=== PATIENT | female | born 1965 | race Caucasian/White ===

== ENCOUNTER → 2016-06-18 | Outpatient (CLI) | payer OTHER ==
[~2016-06-18] MED LIST: ALBUTEROL0.09 MG/A2 IH; ALDACTONE25 M1 PO; AMOXICILLIN500 M2 PO; AUGMENTIN 875875 MG PO; CEPHALEXIN500 M1 PO; CLARITIN REDITA10 MG PO; CLARITIN-D 12 H1 TAB PO; CLARITIN10 MG PO; COREG6.25 MG PO; DOXYCYCLINE MO100 MG PO; FLEXERIL10 MG PO; HYDROCODONE BIT1 T11 PO; LANOXIN0.125 MG PO; MEDROL DOSEPAK4 MG PO; MOTRIN400 MG PO; MULTI VITAMINS1 TAB PO; NASACORT55 MCG/ACT NS; NKHM; PRINIVIL10 MG PO; QVAR 40MCG7.3 G1 INH; ROBITUSSIN AC 110 ML PO; TRAMADOL HCL50 MG PO; XANAX0.5 MG PO; ZITHROMAX Z PA250 MG PO
[2016-06-18 11:01] LABS: BASO % 0.4 % (0.0-1.0); EOS # 0.1 10*3/uL (0.0-0.4); EOS % 1.4 % (1.0-4.0); HEMATOCRIT 34.6 % (37.0-47.0); HEMOGLOBIN 11.9 g/dl (12.0-16.0); LYMPH # 2.7 10*3/uL (1.3-4.4); LYMPH % 33.8 % (27.0-41.0); MEAN CORPUSCULAR HGB 32.3 pg (27.0-31.0); MEAN CORPUSCULAR HGB CONC 34.4 g/dl (33.0-37.0); MEAN PLATELET VOLUME 8.7 fl (9.6-12.3); MONO # 0.6 10*3/uL (0.1-1.0); MONO % 7.6 % (3.0-9.0); NEUT # 4.5 10*3/uL (2.3-7.9); NEUT % 56.5 % (47.0-73.0); PLATELET COUNT AUTOMATED 263 10*3/uL (130-400); RED BLOOD COUNT 3.68 10*6/uL (4.10-5.10); RED CELL DISTRI WIDTH 13.3 % (0-14.5); WHITE BLOOD COUNT 7.9 10*3/uL (4.8-10.8)
[2016-06-18 11:50] LABS: ALKALINE PHOSPHATASE 78 U/L (45-117); BILIRUBIN, TOTAL 0.3 mg/dl (0.2-1.0); BUN 8 mg/dl (7-24); CARBON DIOXIDE 31 mmol/L (21-32); CHLORIDE 102 mmol/L (98-107); CHOLESTEROL 215 mg/dL (<200); EST GLOM FILT AFRICAN AMERICAN > 60 ml/min; GLUCOSE 104 mg/dL (65-99); HDL CHOLESTEROL 47 mg/dl (40-60); LDL CHOLESTEROL 140 mg/dL (9-159); POTASSIUM 3.8 mmol/L (3.5-5.1); SGOT/AST 19 IU/L (3-35); SGPT/ALT 21 U/L (12-78); SODIUM 136 mmol/L (136-145); TOTAL PROTEIN 7.1 gm/dL (6.4-8.2); TRIGLYCERIDES 142 mg/dl (<150); VLDL CHOLESTEROL 28 mg/dL (6-40)
[2016-06-18 11:59] LABS: DIGOXIN 0.51 ng/ml (0.8-2.0)
== END | disposition home or self-care (01) ==
LOC: LAB 10:48
PROVIDERS: Family Medicine
DX: Z00.01 Encounter for general adult medical examination with abnormal findings (principal); I10 Essential (primary) hypertension; I50.1 Left ventricular failure, unspecified; Z72.0 Tobacco use

== ENCOUNTER → 2016-06-19 | Outpatient (CLI) | payer OTHER | END | disposition home or self-care (01) | LOC: CARD 14:37 | DX: Z01.810 Encounter for preprocedural cardiovascular examination (principal) ==

== ENCOUNTER → 2016-11-30 | Day surgery (SDC) | payer OTHER ==
[~2016-11-30] VITALS: Ht 162.5 cm; Wt 59.0 kg
--- NOTE | ~2016-11-30 | O ---
[place], [place] OPERATIVE NOTE NAME: PRIMITIVO ODONNELL [id number] UNIT #: [id number] ROOM: DOCTOR: GISELL MCMAHAN MD BIRTHDATE: [birth year] DOS: 11/30/2016 PROCEDURE: 1. Esophagogastroduodenoscopy with biopsy. 2. Colonoscopy. INDICATION: Dysphagia and colon cancer screening. Informed consent was obtained from the patient after indication of the procedure, the alternatives and potential complications were explained to her. PROCEDURE MEDICATIONS: Sedation was administered by Anesthesiology Department. SCOPE USED: For upper endoscopy: Olympus diagnostic adult upper endoscope GIF-180 insertion was to the descending duodenum. For the colonoscopy, the scope used was Olympus pediatric colonoscope variable stiffness GIF-180, insertion was to the cecum, which was identified by the usual landmarks, appendiceal orifice, ileocecal valve and triangular fold, in addition to transillumination in the right lower quadrant. FINDINGS: After adequate sedation, the patient was placed in left lateral decubitus position. Upper endoscopy was performed first. Scope was introduced under direct visualization through the upper esophageal sphincter into the esophagus. Esophageal mucosa appeared normal. No ulcerations or stricture. Lower esophageal sphincter was identified at 38 cm from the incisors. Normal appearing Z line. Stomach was then intubated. Gastric mucosa inspected. Severe gastritis was seen. No discrete ulcers or active bleeding. A CLOtest was performed from the gastric antrum and body. On retroflexed views of the fundus, no hiatal hernia was seen. Pylorus was intubated easily. The duodenal bulb and descending duodenum were within normal range. The scope was then withdrawn after the stomach was decompressed. We then proceeded with the colonoscopy. Rectal examination showed a diminished sphincter tone and no external hemorrhoids. The scope was introduced into the rectum, then advanced to the cecum with no difficulty. The prep was good. The colon mucosa appeared normal. No evidence of polyps, diverticula or ulcerations. Retroflexed views in the rectum were unremarkable. The scope was then withdrawn after the rectum was decompressed. The patient tolerated the procedures well. IMPRESSION: 1. Gastritis and gastric erosions, CLOtest performed. 2. Normal esophageal mucosa, random biopsies obtained. 3. Normal colon mucosa, with no polyps seen. PLAN: We will review the histopathology and DARCY test results and treat the patient accordingly. Repeat screening colonoscopy advised in 10 years. Office followup will be scheduled in 2-3 weeks. [place], [place] OPERATIVE NOTE NAME: PRIMITIVO ODONNELL UNIT #: [id number] ROOM: DOCTOR: GISELL MCMAHAN MD BIRTHDATE: [birth year] GISELL MCMAHAN MD CM:OPRECORD:OPERATIVE NOTE 9 6 MARJORIE MCMAHAN MD 11/30/1647 interface
[2016-11-30 07:25] VITALS: BP 105/72
[2016-11-30 08:00] VITALS: BP 96/55
[2016-11-30 08:15] VITALS: BP 121/76
[2016-11-30 08:30] VITALS: BP 118/76
== END | disposition home or self-care (01) ==
LOC: SDC 11-28 14:00
DX: Z12.11 Encounter for screening for malignant neoplasm of colon (principal); K29.70 Gastritis, unspecified, without bleeding; I10 Essential (primary) hypertension; Z98.890 Other specified postprocedural states; F17.210 Nicotine dependence, cigarettes, uncomplicated

== ENCOUNTER → 2017-04-25 | Outpatient (CLI) | payer OTHER | END | disposition home or self-care (01) | LOC: CT 13:26 | DX: R90.82 White matter disease, unspecified (principal) ==

== ENCOUNTER → 2017-05-01 | Outpatient (CLI) | payer OTHER ==
[2017-05-01 10:41] LABS: ALKALINE PHOSPHATASE 106 U/L (45-117); BUN 9 mg/dl (7-24); CHLORIDE 96 mmol/L (98-107); CHOLESTEROL 214 mg/dL (<200); CREATININE 0.74 mg/dL (0.55-1.02); HDL CHOLESTEROL 39 mg/dl (40-60); LDL CHOLESTEROL 138 mg/dL (9-159); POTASSIUM 4.2 mmol/L (3.5-5.1); SGOT/AST 18 IU/L (3-35); SGPT/ALT 23 U/L (12-78); SODIUM 132 mmol/L (136-145); TOTAL PROTEIN 8.1 gm/dL (6.4-8.2); TRIGLYCERIDES 186 mg/dl (<150); VLDL CHOLESTEROL 37 mg/dL (6-40)
[2017-05-01 10:48] LABS: HEMATOCRIT 36.7 % (37.0-47.0); MEAN CELL VOLUME 91.3 fl (81.0-99.0); MEAN CORPUSCULAR HGB 32.3 pg (27.0-31.0); MEAN CORPUSCULAR HGB CONC 35.4 g/dl (33.0-37.0); RED BLOOD COUNT 4.02 10*6/uL (4.10-5.10); RED CELL DISTRI WIDTH 12.7 % (0-14.5); WHITE BLOOD COUNT 7.7 10*3/uL (4.8-10.8)
[2017-05-01 10:55] LABS: DIGOXIN 0.46 ng/ml (0.8-2.0)
== END | disposition home or self-care (01) ==
LOC: LAB 09:53
PROVIDERS: Registered Nurse Flight
DX: I11.0 Hypertensive heart disease with heart failure (principal); I50.1 Left ventricular failure, unspecified; E55.9 Vitamin D deficiency, unspecified

== ENCOUNTER 2017-06-18 08:55 | Emergency (ER) | payer OTHER ==
[~2017-06-18] VITALS: Ht 162.5 cm; Wt 62.6 kg
[2017-06-18 09:13] LABS: BASO # 0.1 10*3/uL (0.0-0.1); BASO % 0.5 % (0.0-1.0); EOS # 0.1 10*3/uL (0.0-0.4); EOS % 0.9 % (1.0-4.0); HEMATOCRIT 37.1 % (37.0-47.0); HEMOGLOBIN 12.7 g/dl (12.0-16.0); LYMPH # 2.6 10*3/uL (1.3-4.4); LYMPH % 27.7 % (27.0-41.0); MEAN CELL VOLUME 91.6 fl (81.0-99.0); MEAN CORPUSCULAR HGB 31.4 pg (27.0-31.0); MEAN CORPUSCULAR HGB CONC 34.2 g/dl (33.0-37.0); MEAN PLATELET VOLUME 8.6 fl (9.6-12.3); MONO # 0.8 10*3/uL (0.1-1.0); MONO % 8.2 % (3.0-9.0); NEUT # 5.9 10*3/uL (2.3-7.9); NEUT % 62.4 % (47.0-73.0); PLATELET COUNT AUTOMATED 320 10*3/uL (130-400); RED BLOOD COUNT 4.05 10*6/uL (4.10-5.10); RED CELL DISTRI WIDTH 12.8 % (0-14.5); WHITE BLOOD COUNT 9.4 10*3/uL (4.8-10.8)
[2017-06-18 09:21] LABS: ACT PARTIAL THROMBO TIME 24.9 SECONDS (20.8-31.5); INTERNATIONAL NORM RATIO 0.9 (2.0-3.5)
[2017-06-18 09:29] LABS: ALBUMIN 3.9 gm/dl (3.1-4.5); ALKALINE PHOSPHATASE 103 U/L (45-117); BUN 8 mg/dl (7-24); CHLORIDE 102 mmol/L (98-107); CREATININE 0.81 mg/dL (0.55-1.02); SGOT/AST 15 IU/L (3-35); SGPT/ALT 20 U/L (12-78); SODIUM 136 mmol/L (136-145); TOTAL PROTEIN 7.7 gm/dL (6.4-8.2)
[2017-06-18 09:32] LABS: BILIRUBIN NEGATIVE (NEGATIVE); BLOOD NEGATIVE (NEGATIVE); CLARITY CLEAR (CLEAR); COLOR YELLOW (YELLOW); GLUCOSE NEGATIVE (NEGATIVE); KETONE NEGATIVE (NEGATIVE); LEUKO ESTERASE NEGATIVE (NEGATIVE); NITRITE NEGATIVE (NEGATIVE); SPECIFIC GRAVITY <= 1.005 (1.005-1.030); UROBILINOGEN 0.2 E.U./dl (0.2-1.0)
[2017-06-18 09:34] LABS: TROPONIN I < 0.015 ng/ml (<0.045)
[2017-06-18 09:58] LABS: RBC 0-2 rbc/hpf (0-2)
[2017-06-18] MEDS ORDERED: CLINDAMYCIN HC300 MG PO (10:24)
== END 2017-06-18 10:39 | disposition home or self-care (01) ==
LOC: ED 08:55
PROVIDERS: Emergency Medicine
DX: R07.9 Chest pain, unspecified (principal); R59.0 Localized enlarged lymph nodes; F17.200 Nicotine dependence, unspecified, uncomplicated; Z79.899 Other long term (current) drug therapy

== ENCOUNTER → 2017-11-28 | Outpatient (CLI) | payer OTHER ==
[~2017-11-28] MED LIST changes: +CLINDAMYCIN HC300 MG PO
== END | disposition home or self-care (01) ==
LOC: RAD 12:33
DX: M48.07 Spinal stenosis, lumbosacral region (principal); M48.04 Spinal stenosis, thoracic region

== ENCOUNTER 2018-06-26 09:46 | Emergency (ER) | payer OTHER ==
[~2018-06-26] VITALS: Ht 162.5 cm; Wt 59.9 kg
--- NOTE | ~2018-06-26 | EKG ---
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
[2018-06-26 10:11] LABS: BASO % 0.5 % (0.0-1.0); EOS # 0.1 10*3/uL (0.0-0.4); EOS % 1.2 % (1.0-4.0); HEMATOCRIT 36.9 % (37.0-47.0); HEMOGLOBIN 12.8 g/dl (12.0-16.0); LYMPH # 2.8 10*3/uL (1.3-4.4); LYMPH % 36.8 % (27.0-41.0); MEAN CELL VOLUME 93.4 fl (81.0-99.0); MEAN CORPUSCULAR HGB 32.4 pg (27.0-31.0); MEAN CORPUSCULAR HGB CONC 34.7 g/dl (33.0-37.0); MEAN PLATELET VOLUME 9.5 fl (9.6-12.3); MONO # 0.7 10*3/uL (0.1-1.0); MONO % 9.2 % (3.0-9.0); PLATELET COUNT AUTOMATED 300 10*3/uL (130-400); RED BLOOD COUNT 3.95 10*6/uL (4.10-5.10); RED CELL DISTRI WIDTH 13.2 % (0-14.5); WHITE BLOOD COUNT 7.6 10*3/uL (4.8-10.8)
[2018-06-26 10:22] LABS: ACT PARTIAL THROMBO TIME 24.3 SECONDS (20.8-31.5); INTERNATIONAL NORM RATIO 0.9 (2.0-3.5)
[2018-06-26 10:27] LABS: ALBUMIN 3.5 gm/dl (3.1-4.5); ALKALINE PHOSPHATASE 93 U/L (45-117); BUN 10 mg/dl (7-24); CHLORIDE 102 mmol/L (98-107); CREATININE 0.89 mg/dL (0.55-1.02); POTASSIUM 4.5 mmol/L (3.5-5.1); SGOT/AST 24 IU/L (3-35); SGPT/ALT 18 U/L (12-78); SODIUM 136 mmol/L (136-145); TOTAL PROTEIN 7.8 gm/dL (6.4-8.2)
[2018-06-26 10:35] LABS: TROPONIN I < 0.015 ng/ml (<0.045)
== END 2018-06-26 11:06 | disposition home or self-care (01) ==
LOC: ED 09:46
PROVIDERS: Emergency Medicine
DX: H81.10 Benign paroxysmal vertigo, unspecified ear (principal); I10 Essential (primary) hypertension; F17.200 Nicotine dependence, unspecified, uncomplicated; Z79.899 Other long term (current) drug therapy; Z98.51 Tubal ligation status

== ENCOUNTER 2018-11-13 19:31 | Inpatient (IN) | payer OTHER ==
[~2018-11-13] VITALS: Ht 162.5 cm; Wt 56.9 kg
[2018-11-13 19:35] VITALS: BP 168/103
--- NOTE | 2018-11-13 19:40 | NUR ---
RESIDENT IS AT THE BEDSIDE.
[2018-11-13 19:53] LABS: BASO # 0.1 10*3/uL (0.0-0.1); BASO % 0.6 % (0.0-1.0); EOS # 0.1 10*3/uL (0.0-0.4); EOS % 0.8 % (1.0-4.0); HEMATOCRIT 40.9 % (37.0-47.0); HEMOGLOBIN 13.9 g/dl (12.0-16.0); LYMPH # 3.7 10*3/uL (1.3-4.4); LYMPH % 35.4 % (27.0-41.0); MEAN CELL VOLUME 92.7 fl (81.0-99.0); MEAN CORPUSCULAR HGB 31.5 pg (27.0-31.0); MEAN PLATELET VOLUME 9.4 fl (9.6-12.3); MONO # 0.8 10*3/uL (0.1-1.0); MONO % 8.1 % (3.0-9.0); NEUT # 5.7 10*3/uL (2.3-7.9); NEUT % 54.8 % (47.0-73.0); PLATELET COUNT AUTOMATED 276 10*3/uL (130-400); RED BLOOD COUNT 4.41 10*6/uL (4.10-5.10); RED CELL DISTRI WIDTH 12.9 % (0-14.5); WHITE BLOOD COUNT 10.3 10*3/uL (4.8-10.8)
[2018-11-13 19:54] VITALS: BP 139/91
[2018-11-13 20:03] LABS: ACT PARTIAL THROMBO TIME 25.8 SECONDS (20.0-32.1); INTERNATIONAL NORM RATIO 0.9 (2.0-3.5)
[2018-11-13 20:10] LABS: ALBUMIN 4.2 gm/dl (3.1-4.5); ALKALINE PHOSPHATASE 109 U/L (45-117); BUN 10 mg/dl (7-24); CHLORIDE 102 mmol/L (98-107); POTASSIUM 3.5 mmol/L (3.5-5.1); SGOT/AST 15 IU/L (3-35); SGPT/ALT 18 U/L (12-78); SODIUM 134 mmol/L (136-145); TOTAL PROTEIN 8.4 gm/dL (6.4-8.2)
[2018-11-13 20:11] LABS: TROPONIN I 0.021 ng/ml (<0.045)
[2018-11-13 20:32] VITALS: BP 140/88
--- NOTE | 2018-11-13 20:32 | NUR ---
DR SHEA HAS BEEN IN TO UPDATE ON RESULTS AND PLAN FOR ADMISSION. REMAINS AT BASELINE. DENIES ANY NEEDS OTHER THAN STILL FEELING A BIT ANXIOUS. PLAN IS TO GIVE ANOTHER DOSE OF XANAX PER DR SHEA. CALL LIGHT WITHIN REACH. WILL CONTINUE TO MONITOR.
--- NOTE | 2018-11-13 20:44 | NUR ---
AWAITING BED ASSIGNMENT.
--- NOTE | 2018-11-13 21:08 | NUR ---
SPOKE WITH KLEVER TO ADVISE OF ETA TO ROOM.
[2018-11-13 21:15] VITALS: BP 146/89
[2018-11-13] MEDS ORDERED: ASPIRIN ADULT L81 M2 PO (21:36)
--- NOTE | 2018-11-13 22:00 | NUR ---
SPOKE WITH DR CORONA REGARDING PTS DIET. STATES PT CAN HAVE SOMETHING TO EAT AT THIS TIME BUT SHOULD BE NPO AFTER MIDNIGHT.
--- NOTE | 2018-11-13 22:07 | NUR ---
A 53, admitted to , under the services of SAMUEL Mauro DO with a diagnosis of CHEST PAIN W/ MODERATE RISK FOR CARDIAC ETIOLOGY. Chief complaint is CHEST PAIN. Patient arrived via bed from ER. Monitor applied. Initial assessment completed. Vital signs taken and recorded. SAMUEL MAURO DO notified of admission to the unit. Orders received. See assessment for past medical history, medications and allergies. Patient and/or family oriented to unit. [address] visitation policy reviewed. Clothing/patient valuable form completed. NO WOUNDS. SKIN WDI. STELLA MCCALL
--- NOTE | 2018-11-13 22:09 | NUR ---
DR. CORONA AWARE THAT PATIENTS HOME MEDICATIONS WERE REVIEWED WITH THE PATIENT AND ARE UP TO DATE.
--- NOTE | 2018-11-13 23:25 | NUR ---
DR. CORONA NOTIFIED OF CRITICAL TROPONIN 0.444.
--- NOTE | 2018-11-13 23:28 | NUR ---
SPOKE WITH DR ELLIOTT. RECOMENDED CALLING IN THE CONSULT TO DR. OWENS STAT FOLLOWING ELEVATED TROPONIN RESULT. 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 SPOKE WITH HIM REGARDING PTS CONDITION. STATES FOR ME TO CALL DR OWENS AT 0600. FOR NOW, ONE TIME DOSE OF LOVENOX 1MG/KG TO BE GIVEN SUBCUTANEOUSLY PER DR. ADAME TELEPHONE ORDER.
[2018-11-14] VITALS: BP 112/61
--- NOTE | 2018-11-14 03:12 | NUR ---
DR ELLIOTT NOTIFIED OF CRITICAL TROPONIN OF 0.599.
[2018-11-14 05:58] LABS: ALBUMIN 3.4 gm/dl (3.1-4.5); ALKALINE PHOSPHATASE 90 U/L (45-117); BUN 11 mg/dl (7-24); CHLORIDE 107 mmol/L (98-107); CHOLESTEROL 212 mg/dL (<200); CREATININE 0.65 mg/dL (0.55-1.02); HDL CHOLESTEROL 30 mg/dl (40-60); LDL CHOLESTEROL 139 mg/dL (9-159); PHOSPHOROUS 3.7 mg/dL (2.5-4.9); POTASSIUM 3.6 mmol/L (3.5-5.1); SGOT/AST 15 IU/L (3-35); SGPT/ALT 16 U/L (12-78); SODIUM 139 mmol/L (136-145); TOTAL PROTEIN 6.9 gm/dL (6.4-8.2); TRIGLYCERIDES 214 mg/dl (<150); VLDL CHOLESTEROL 43 mg/dL (6-40)
[2018-11-14 05:59] LABS: FREE T4 0.88 ng/dl (0.76-1.46)
--- NOTE | 2018-11-14 06:03 | NUR ---
SPOKE WITH ANSWERING SERVICE REGARIDN NEW PT CONSULT FOR DR MIMS. AWAITING CALL BACK.
--- NOTE | 2018-11-14 06:09 | NUR ---
DR MIMS AWARE OF NEW PT CONSULT.
[2018-11-14 06:12] LABS: TROPONIN I 0.506 ng/ml (<0.045)
--- NOTE | 2018-11-14 06:14 | NUR ---
DR ELLIOTT NOTIFIED OF CRITICAL TROPONIN 0.506.
[2018-11-14 06:18] LABS: BASO % 0.4 % (0.0-1.0); EOS # 0.1 10*3/uL (0.0-0.4); EOS % 1.6 % (1.0-4.0); HEMATOCRIT 36.3 % (37.0-47.0); HEMOGLOBIN 12.5 g/dl (12.0-16.0); LYMPH # 3.4 10*3/uL (1.3-4.4); LYMPH % 44.1 % (27.0-41.0); MEAN CELL VOLUME 91.9 fl (81.0-99.0); MEAN CORPUSCULAR HGB 31.6 pg (27.0-31.0); MEAN CORPUSCULAR HGB CONC 34.4 g/dl (33.0-37.0); MEAN PLATELET VOLUME 9.6 fl (9.6-12.3); MONO # 0.7 10*3/uL (0.1-1.0); MONO % 9.4 % (3.0-9.0); NEUT # 3.4 10*3/uL (2.3-7.9); NEUT % 44.2 % (47.0-73.0); PLATELET COUNT AUTOMATED 251 10*3/uL (130-400); RED BLOOD COUNT 3.95 10*6/uL (4.10-5.10); RED CELL DISTRI WIDTH 12.8 % (0-14.5); WHITE BLOOD COUNT 7.6 10*3/uL (4.8-10.8)
[2018-11-14 07:57] LABS: VITAMIN D, 25-HYDROXY 31.6 ng/mL (30-100)
[2018-11-14 08:00] VITALS: BP 118/70
--- NOTE | 2018-11-14 09:00 | NUR ---
Interventional Cardiologist in to talk to patient. Patient states lives at home with . There are few steps in the home. Physician: sharri acosta Pharmacy: [facility] health services: none Patient's level of ADLs: INDEPENDENT Patient has working utilities: all working DME: none Follow-up physician's appointment after d/c: will be made by hospitalist nurse director upon discharge Does patient want to access PORTAL?: no Discharge plan discussed with patient she lives at home is independent in adls and ambulation, drives, she states she will be returning home when able and denies any home needs. PUJA MARCOS
--- NOTE | 2018-11-14 09:20 | NUR ---
INFORMED SIGNED CONSENT OBTAINED FOR LEXISCAN STRESS TEST WITH DR OWENS. RESTING EKG LBBB HR 72 BP 124/62. PULSE OX 1005 LUNGS CLEAR, SLIGHTLY DIMINISHED IN THE BASES. PT COMPLETED A ONE MINUTE LEXISCAN PROTOCOL WITH PT RECEIVING LEXISCAN 0.4MG IV OVER 10 SECONDS. NO ARRHYTHMIAS NOTED. NONDIAGNOSTIC ST CHANGES SEEN. PT C/O CHEST DISCOMFORT ACROSS CHEST, SOB AND STOMACH CRAMPING WITH INJECTION. LAST RECOVERY HR OF 102 BP 104/68. PT IN STABLE CONDITION, AWIATING NUCLEAR IMAGES.
--- NOTE | 2018-11-14 09:24 | NUR ---
NURSE NOTIFIED THAT REGARDLESS OF STRESS TEST RESULSTS, PT IS SET UP FOR A HEART CATH AT [facility] WITH DR OWENS ON SATURDAY. DR OWENS CALLED AND SPOKE WITH HIS STAFF TO SET IT UP.
--- NOTE | 2018-11-14 10:40 | NUR ---
PER PATIENT CAN D/C HOME, BUT SHE WILL NEED SET-UP FOR HEART CATH AT [facility] ON Saturday11/17/18 PRIOR TO [place]
--- NOTE | 2018-11-14 11:26 | NUR ---
PER FUENTES TADEO'S OFFICE PATIENT HAS BEEN SET-UP FOR A HEART CATH ON 11/17/18 AT 0930, PT WILL NEED TO ARRIVE AT 0730 TO [facility], PT TO BE NPO AFTER MINDNIGHT ON 11/17, CONTINUE TAKING ASA AND PLAVIX. PT AWARE OF INSTRUCTIONS
[2018-11-14 12:00] VITALS: BP 105/69
[2018-11-14] MEDS ORDERED: CLOPIDOGREL75 MG PO (14:04)
[2018-11-14] MEDS ORDERED: LIPITOR40 MG PO (14:04)
--- NOTE | 2018-11-14 14:23 | NUR ---
Discharge instructions reviewed with patient/family. Patient receptive and verbalizes understanding. Follow-up care arranged. Written instructions given to patient/family. AISHWARYA VALDIVIA
== END 2018-11-14 14:40 | disposition home or self-care (01) | DRG 198 ==
LOC: ED 19:31 → EDHOLD 20:23 → 4E 20:23
PROVIDERS: Emergency Medicine Emergency Medical Services; Internal Medicine; ADMIT Internal Medicine
PROC: 4A02XM4 Measurement of Cardiac Total Activity, External Approach (ICD-10-PCS; principal; 2018-11-14)
PROC: 3E073KZ Introduction of Other Diagnostic Substance into Coronary Artery, Percutaneous Approach (ICD-10-PCS; 2018-11-14)
DX: I25.118 Atherosclerotic heart disease of native coronary artery with other forms of angina pectoris (principal); E87.1 Hypo-osmolality and hyponatremia; I50.22 Chronic systolic (congestive) heart failure; I42.6 Alcoholic cardiomyopathy; F17.210 Nicotine dependence, cigarettes, uncomplicated; I11.0 Hypertensive heart disease with heart failure; E78.5 Hyperlipidemia, unspecified; F41.9 Anxiety disorder, unspecified; Z87.440 Personal history of urinary (tract) infections; Z98.51 Tubal ligation status; Z82.49 Family history of ischemic heart disease and other diseases of the circulatory system; Z80.0 Family history of malignant neoplasm of digestive organs; Z79.82 Long term (current) use of aspirin; Z79.899 Other long term (current) drug therapy

== ENCOUNTER → 2018-12-09 | Outpatient (CLI) | payer OTHER ==
[~2018-12-09] MED LIST changes: +ASPIRIN ADULT L81 M2 PO; +CLOPIDOGREL75 MG PO; +LIPITOR40 MG PO
[2018-12-09 12:00] LABS: BASO # 0.1 10*3/uL (0.0-0.1); BASO % 0.6 % (0.0-1.0); EOS # 0.2 10*3/uL (0.0-0.4); EOS % 2.3 % (1.0-4.0); HEMATOCRIT 33.6 % (37.0-47.0); HEMOGLOBIN 11.3 g/dl (12.0-16.0); LYMPH # 2.9 10*3/uL (1.3-4.4); LYMPH % 34.8 % (27.0-41.0); MEAN CELL VOLUME 93.1 fl (81.0-99.0); MEAN CORPUSCULAR HGB 31.3 pg (27.0-31.0); MEAN CORPUSCULAR HGB CONC 33.6 g/dl (33.0-37.0); MEAN PLATELET VOLUME 9.4 fl (9.6-12.3); MONO # 0.6 10*3/uL (0.1-1.0); MONO % 7.6 % (3.0-9.0); NEUT # 4.5 10*3/uL (2.3-7.9); NEUT % 54.5 % (47.0-73.0); PLATELET COUNT AUTOMATED 342 10*3/uL (130-400); RED BLOOD COUNT 3.61 10*6/uL (4.10-5.10); RED CELL DISTRI WIDTH 13.4 % (0-14.5); WHITE BLOOD COUNT 8.3 10*3/uL (4.8-10.8)
[2018-12-09 12:18] LABS: ALBUMIN 3.8 gm/dl (3.1-4.5); ALKALINE PHOSPHATASE 110 U/L (45-117); BUN 7 mg/dl (7-24); CHLORIDE 104 mmol/L (98-107); CHOLESTEROL 114 mg/dL (<200); CREATININE 0.79 mg/dL (0.55-1.02); SGOT/AST 16 IU/L (3-35); SGPT/ALT 27 U/L (12-78); SODIUM 136 mmol/L (136-145); TOTAL PROTEIN 7.8 gm/dL (6.4-8.2); TRIGLYCERIDES 115 mg/dl (<150); VLDL CHOLESTEROL 23 mg/dL (6-40)
[2018-12-09 12:19] LABS: HDL CHOLESTEROL 32 mg/dl (40-60); LDL CHOLESTEROL 59 mg/dL (9-159)
== END | disposition home or self-care (01) ==
LOC: LAB 11:35
PROVIDERS: Registered Nurse Flight
DX: E78.00 Pure hypercholesterolemia, unspecified (principal); D72.829 Elevated white blood cell count, unspecified

== ENCOUNTER → 2019-01-30 | Outpatient (CLI) | payer OTHER | END | disposition home or self-care (01) | LOC: RAD 10:14 | DX: R06.09 Other forms of dyspnea (principal); R06.02 Shortness of breath ==

== ENCOUNTER → 2019-03-25 | Outpatient (CLI) | payer OTHER | END | disposition home or self-care (01) | LOC: CARD 10:10 | DX: I50.1 Left ventricular failure, unspecified (principal) ==

== ENCOUNTER 2019-04-03 07:47 | Emergency (ER) | payer OTHER ==
[~2019-04-03] VITALS: Ht 162.5 cm; Wt 56.7 kg
== END 2019-04-03 09:47 | disposition home or self-care (01) ==
LOC: ED 07:47
DX: S60.222A Contusion of left hand, initial encounter (principal); W23.0XXA Caught, crushed, jammed, or pinched between moving objects, initial encounter; Y92.512 Supermarket, store or market as the place of occurrence of the external cause

== ENCOUNTER → 2019-11-17 | Outpatient (CLI) | payer OTHER ==
[2019-11-17 11:47] LABS: ALBUMIN 4.1 gm/dl (3.1-4.5); BUN 6 mg/dl (7-24); CHLORIDE 107 mmol/L (98-107); CHOLESTEROL 119 mg/dL (<200); CREATININE 0.71 mg/dL (0.55-1.02); HDL CHOLESTEROL 40 mg/dl (40-60); LDL CHOLESTEROL 60 mg/dL (9-159); POTASSIUM 4.4 mmol/L (3.5-5.1); SGOT/AST 20 IU/L (3-35); SGPT/ALT 32 U/L (12-78); SODIUM 138 mmol/L (136-145); TOTAL PROTEIN 7.7 gm/dL (6.4-8.2); TRIGLYCERIDES 93 mg/dl (<150); VLDL CHOLESTEROL 19 mg/dL (6-40)
[2019-11-17 11:48] LABS: ALKALINE PHOSPHATASE 98 U/L (45-117)
== END | disposition home or self-care (01) ==
LOC: LAB 10:52
PROVIDERS: ATTEND Registered Nurse Flight
DX: E78.00 Pure hypercholesterolemia, unspecified (principal)

== ENCOUNTER → 2020-01-06 | Outpatient (CLI) | payer OTHER | END | disposition home or self-care (01) | LOC: US 14:49 | PROVIDERS: ATTEND Internal Medicine | DX: I65.23 Occlusion and stenosis of bilateral carotid arteries (principal) ==

== ENCOUNTER → 2020-02-29 | Outpatient (CLI) | payer OTHER | END | disposition home or self-care (01) | LOC: COVID19 11:15 | PROVIDERS: ATTEND Nurse Practitioner Adult Health | DX: Z20.828 Contact with and (suspected) exposure to other viral communicable diseases (principal) ==

== ENCOUNTER 2020-03-26 20:12 | Emergency (ER) | payer OTHER ==
[~2020-03-26] VITALS: Ht 162.5 cm; Wt 57.2 kg
[2020-03-27] MEDS ORDERED: CYCLOBENZAPRINE10 MG PO ×2 (00:51)
[2020-04-19] MEDS ORDERED: COREG3.125 MG PO (05:39)
[2020-04-19] MEDS ORDERED: BENADRYL ALLERG25 M5 PO (05:39)
[2020-04-19] MEDS ORDERED: BRILINTA90 M1 PO (05:39)
[2020-04-19] MEDS ORDERED: LIPITOR80 MG PO (05:40)
[2020-04-19] MEDS ORDERED: COZAAR50 M1 PO (05:40)
[2020-04-19] MEDS ORDERED: IMDUR SA30 MG PO (05:42)
== END 2020-03-27 01:34 | disposition home or self-care (01) ==
LOC: ED 20:12
DX: S16.1XXA Strain of muscle, fascia and tendon at neck level, initial encounter (principal); I25.10 Atherosclerotic heart disease of native coronary artery without angina pectoris; E78.5 Hyperlipidemia, unspecified; I10 Essential (primary) hypertension; F17.210 Nicotine dependence, cigarettes, uncomplicated; Z79.899 Other long term (current) drug therapy; Z79.82 Long term (current) use of aspirin; V89.2XXA Person injured in unspecified motor-vehicle accident, traffic, initial encounter; Y93.89 Activity, other specified; Y92.89 Other specified places as the place of occurrence of the external cause; Y99.8 Other external cause status

== ENCOUNTER → 2020-04-19 | Outpatient (CLI) | payer OTHER ==
[~2020-04-19] MED LIST changes: +BENADRYL ALLERG25 M5 PO; +BRILINTA90 M1 PO; +COREG3.125 MG PO; +COZAAR50 M1 PO; +CYCLOBENZAPRINE10 MG PO; +IMDUR SA30 MG PO; +LIPITOR80 MG PO
== END | disposition home or self-care (01) ==
LOC: CARD 00:13
PROVIDERS: ATTEND Internal Medicine Cardiovascular Disease
DX: I20.8 Other forms of angina pectoris (principal); R53.81 Other malaise

== ENCOUNTER → 2020-05-04 | Outpatient (CLI) | payer OTHER ==
[2020-05-04 09:08] LABS: CREATININE 0.75 mg/dL (0.55-1.02)
== END | disposition home or self-care (01) ==
LOC: LAB 08:32 → CT 09:00
PROVIDERS: Radiology Diagnostic Radiology; ATTEND Thoracic Surgery (Cardiothoracic Vascular Surgery)
DX: I65.23 Occlusion and stenosis of bilateral carotid arteries (principal); J43.2 Centrilobular emphysema; M48.02 Spinal stenosis, cervical region; M47.812 Spondylosis without myelopathy or radiculopathy, cervical region

== ENCOUNTER 2020-09-23 09:44 | Emergency (ER) | payer OTHER ==
[~2020-09-23] VITALS: Ht 162.5 cm; Wt 55.8 kg
[2020-09-23] MEDS ORDERED: PREDNISONE50 MG PO (12:15)
== END 2020-09-23 12:25 | disposition home or self-care (01) ==
LOC: ED 09:44
DX: M54.42 Lumbago with sciatica, left side (principal); M72.2 Plantar fascial fibromatosis; F17.210 Nicotine dependence, cigarettes, uncomplicated; Z79.82 Long term (current) use of aspirin; Z79.899 Other long term (current) drug therapy; Z90.89 Acquired absence of other organs; Z98.51 Tubal ligation status

== ENCOUNTER → 2020-10-04 | Outpatient (CLI) | payer OTHER ==
[~2020-10-04] MED LIST changes: +PREDNISONE50 MG PO
[2020-10-04 11:08] LABS: BILIRUBIN Negative (Negative); BLOOD 1+ (Negative); CLARITY Clear (Clear); COLOR Yellow (Yellow); GLUCOSE Negative (Negative); KETONE Negative (Negative); LEUKO ESTERASE Trace (Negative); NITRITE Negative (Negative); PH 6.5 (4.5-8.0)
[2020-10-04 12:24] LABS: BACTERIA 1+; RBC 21-30 rbc/hpf (0-2)
== END | disposition home or self-care (01) ==
LOC: LAB 10:42 → EDSTATUS 10:43
PROVIDERS: ATTEND Internal Medicine
DX: R82.998 Other abnormal findings in urine (principal)

== ENCOUNTER → 2024-05-26 | Outpatient (CLI) | payer OTHER ==
[~2024-05-26] MED LIST changes: +Regadenoson 0.4 MG/5 ML SYR IV ONE; +Technetium Tc 99M Tetrofosmi 0.23 MG KIT IJ SCH
== END | disposition home or self-care (01) ==
LOC: CARD 01:45
PROVIDERS: ATTEND Internal Medicine Cardiovascular Disease
DX: I44.7 Left bundle-branch block, unspecified (principal); I42.9 Cardiomyopathy, unspecified; I20.9 Angina pectoris, unspecified